=== PATIENT | female | born 1980 | race Caucasian/White ===

== ENCOUNTER 2016-08-06 08:27 | Day surgery (SDC) | payer OTHER ==
[~2016-08-06] VITALS: Ht 162.6 cm; Wt 77.0 kg
[~2016-08-06 08:27] MED LIST: FLINTSTONES GU1 EACH PO; FOLIC ACID0.4 MG PO; SYNTHROID100 MCG PO
[2016-08-06 08:53] VITALS: BP 129/91
[2016-08-06 09:18] LABS: EOSINOPHIL (%) 1.1 % (0-5); EOSINOPHIL COUNT 0.1 K/uL (0-0.3); HEMATOCRIT 39.4 % (36.0-46.0); IMMATURE GRANULOCYTE (%) 0.3 % (0.0-0.7); INSTRUMENT ABS NEUTROPHIL CT 6.7 K/uL; LYMPHOCYTE COUNT 1.5 K/uL (1.0-2.8); MCH 31.7 PG (29.0-34.0); MCHC 33.8 G/DL (30.0-36.0); MCV 93.8 FL (83-99); MEAN PLAT.VOLUME 9.1 uM^3 (9.5-12.4); MONOCYTE (%) 5.8 % (3-12); MONOCYTE COUNT 0.5 K/uL (0-0.8); NEUTROPHIL (%) 75.8 % (45-76); NEUTROPHIL COUNT 6.7 K/uL (1.8-6.4); PLATELET COUNT 362 K/uL (156-360); RBC DIS.WIDTH-CV 12.2 % (11.8-14.6); RBC DIS.WIDTH-SD 41.7 % (39-53); WHITE BLOOD COUNT 8.9 K/uL (4.1-10.2)
[2016-08-06 09:29] LABS: TOTAL BILIRUBIN 0.6 mg/dL (0.0-1.0)
[2016-08-06 09:30] LABS: ALKALINE PHOSPHATASE 85 IU/L (3-129)
[2016-08-06 09:33] LABS: DIRECT BILIRUBIN 0.2 mg/dL (0.0-0.3)
[2016-08-06] MEDS ORDERED: VICODIN 5-3001 EACH PO (10:30)
[2016-08-06] MEDS ORDERED: MOTRIN800 MG PO (10:30)
[2016-08-06 12:00] VITALS: BP 113/69
[2016-08-06 13:02] VITALS: BP 119/65
== END 2016-08-06 13:00 | disposition home or self-care (01) ==
LOC: SDC 08:27
PROVIDERS: Obstetrics & Gynecology
PROC: 10D17ZZ Extraction of Products of Conception, Retained, Via Natural or Artificial Opening (ICD-10-PCS; principal; 2016-08-06)
DX: O02.1 Missed abortion (principal); Z3A.01 Less than 8 weeks gestation of pregnancy
CPT/HCPCS: 80076; 85025; 86850; 86900; 86901; 88305; J1100; J1885; J2250; J2405; J2765; J3010

== ENCOUNTER 2017-04-21 12:04 | Day surgery (SDC) | payer OTHER ==
[~2017-04-21] VITALS: Ht 162.6 cm; Wt 77.1 kg
[~2017-04-21 12:04] MED LIST changes: +MOTRIN800 MG PO; +PRENATAL TABLE1 EAC3 PO; +VICODIN 5-3001 EACH PO
[2017-04-21 13:01] VITALS: BP 122/75
[2017-04-21 13:22] LABS: EOSINOPHIL (%) 0.5 % (0-5); HEMATOCRIT 35.8 % (36.0-46.0); IMMATURE GRANULOCYTE (%) 0.1 % (0.0-0.7); INSTRUMENT ABS NEUTROPHIL CT 5.5 K/uL; LYMPHOCYTE COUNT 1.4 K/uL (1.0-2.8); MCH 33.2 PG (29.0-34.0); MCHC 34.9 G/DL (30.0-36.0); MCV 95.2 FL (83-99); MEAN PLAT.VOLUME 9.1 uM^3 (9.5-12.4); MONOCYTE (%) 5.3 % (3-12); MONOCYTE COUNT 0.4 K/uL (0-0.8); NEUTROPHIL (%) 74.7 % (45-76); NEUTROPHIL COUNT 5.5 K/uL (1.8-6.4); PLATELET COUNT 298 K/uL (156-360); RBC DIS.WIDTH-SD 42.1 % (39-53); RED BLOOD COUNT 3.76 M/uL (3.80-5.20); WHITE BLOOD COUNT 7.3 K/uL (4.1-10.2)
[2017-04-21] MEDS ORDERED: IBUPROFEN800 MG PO (15:06)
[2017-04-21] MEDS ORDERED: HYDROCODON-ACE1 EAC7 PO (15:06)
[2017-04-21 16:12] VITALS: BP 130/77
[2017-04-21 16:50] VITALS: BP 140/79
== END 2017-04-21 17:00 | disposition home or self-care (01) ==
LOC: SDC 12:04
PROVIDERS: Obstetrics & Gynecology
PROC: 10D17ZZ Extraction of Products of Conception, Retained, Via Natural or Artificial Opening (ICD-10-PCS; principal; 2017-04-21)
DX: O02.1 Missed abortion (principal); Z3A.01 Less than 8 weeks gestation of pregnancy; E03.9 Hypothyroidism, unspecified; Z85.72 Personal history of non-Hodgkin lymphomas
CPT/HCPCS: 85025; 86850; 86900; 86901; 88233 90; 88262 90; 88305; J0690; J1100; J2250; J2405; J2765; J3010; Q0175